=== PATIENT | male | born 1945 | race Caucasian/White ===

== ENCOUNTER → 2016-11-13 | Outpatient (CLI) | payer MEDICARE, OTHER ==
[~2016-11-13] MED LIST: AMLODIPINE BESYL5 MG PO; CARTIA XT240 MG PO; CLARINEX5 MG PO; DIOVAN HCT 3201 EACH PO; METOPROLOL TAR25 MG PO; VALSARTAN-HCTZ1 EACH PO; XARELTO20 MG PO
--- NOTE | ~2016-11-13 | CT4 ---
[facility] A Service of [facility] RADIOLOGY TEXT RESULTS PATIENT: BEA OLIVO LOCATION: [facility] : 43 UNIT #: [id number] AGE: [address]: Linh Torres MD SEX: M ORDER DR: [id number] [facility] [address] [facility] [place], [place] [address] [id number] O MR#: [id number] Acc #: [id number] NAME: BEA OLIVO : 1945 SEX: M STUDY DATE/TIME: 11/13/2016 13:15 UNIT: [facility] ROOM: STUDY DESCRIPTION: CT Abd and Pelv Wo Cont Attending Physician: Linh Torres M.D. Referring Physician: Linh Torres M.D. Ordering Physician: Linh Torres M.D. Primary Care Physician: Linh Torres M.D. MEDICAL IMAGING REPORT This report is preliminary unless electronic signature is present EXAM CT of the abdomen and pelvis without contrast HISTORY Hematuria. Left flank pain. Evaluate for kidney stones. Symptoms for 3 days. COMPARISON 09/13/2010 TECHNIQUE Axial 3.0 mm images were obtained through the abdomen and pelvis without IV or oral contrast. This CT exam was performed with one or more of the following radiation dose reduction techniques: automatic exposure control, adjustment of mA and/or kV according to patient size, and iterative reconstruction. FINDINGS The lung bases are clear. The liver has a small probable cyst within it in the right lobe measuring about 8.0 mm in diameter. This is unchanged from 2010. The spleen, pancreas, adrenal glands and right kidney are normal. The gallbladder has a small stone within it measuring 5.0 mm in diameter. The left kidney shows mild hydronephrosis. There is a proximal 2.0 mm left ureteral stone. Aorta is normal in size and there is no adenopathy. The bowel, including the appendix, appears normal. The bladder and prostate gland are normal. The bones are unremarkable. IMPRESSION 1. 2.0 mm proximal left ureteral stone with mild hydronephrosis. 2. Tiny right hepatic cyst. 3. Otherwise normal. [facility] A Service of [facility] RADIOLOGY TEXT RESULTS PATIENT: BEA OLIVO LOCATION: [facility] : 43 UNIT #: [id number] AGE: [address]: Linh Torres MD SEX: M ORDER DR: STAT * RESULT Dictated by... Moises López M.D. THIS IS AN ELECTRONICALLY VERIFIED REPORT Moises López M.D. at 11/13/2016 3:33 PM Earnest TD: 11/13/2016 14:21 JOB #: [id number] MEDICAL IMAGING REPORT Page 1 of 1 COPY
== END | disposition home or self-care (01) ==
LOC: CCAT 12:38
DX: R31.9 Hematuria, unspecified (principal); N13.2 Hydronephrosis with renal and ureteral calculous obstruction; K76.89 Other specified diseases of liver; R10.9 Unspecified abdominal pain
CPT/HCPCS: 74176